=== PATIENT | male | born 1980 | race Caucasian/White ===

== ENCOUNTER 2025-04-02 14:02 | Emergency (ER) | payer OTHER ==
[2025-04-02 14:59] LABS: BASOPHILS ABSOLUTE AUTO 0.1 K/mm3 (0.0-0.2); BASOPHILS PERCENT AUTO 0.8 % (0.0-1.0); EOSINOPHILS ABSOLUTE AUTO 0.5 K/mm3 (0.0-0.4); EOSINOPHILS PERCENT AUTO 6.3 % (0.0-6.0); IMMATURE GRAN ABSOLUTE AUTO 0.01 K/mm3 (0.00-0.05); IMMATURE GRAN PERCENT AUTO 0.1 % (0.0-0.4); LYMPHOCYTES ABSOLUTE AUTO 2.4 K/mm3 (1.0-4.8); LYMPHOCYTES PERCENT AUTO 33.9 % (24.0-44.0); MEAN PLATELET VOLUME 8.8 fl (9.4-12.4); MONOCYTES ABSOLUTE AUTO 0.7 K/mm3 (0.0-0.8); MONOCYTES PERCENT AUTO 9.8 % (0.0-8.0); NEUTROPHILS ABSOLUTE AUTO 3.5 K/mm3 (1.8-7.7); NEUTROPHILS PERCENT AUTO 49.1 % (41.0-71.0); NRBC ABSOLUTE 0.00 (0.00-0.02); NRBC PERCENT 0.0 % (0.0-0.2); PLATELET COUNT,PLT 325 K/mm3 (150-400); RED BLOOD CELL COUNT 4.93 M/mm3 (4.52-5.90); WHITE BLOOD CELL COUNT,WBC 7.13 K/mm3 (3.9-11.3)
[2025-04-02 15:21] LABS: A/G RATIO 1.1 (1-2); ALANINE AMINOTRANSFERASE,ALT 31 U/L (16-63); ASPARTATE AMNIOTRANSFERASE,AST 15 U/L (15-37); BILIRUBIN TOTAL 0.7 mg/dL (0.2-1.0); BLOOD UREA NITROGEN,BUN 17 mg/dL (7-18); CARBON DIOXIDE,CO2 28 mEq/L (21-32); CHLORIDE,CL 107 mEq/L (98-107); CREATININE 0.9 mg/dL (0.7-1.3); ESTIMATED GFR 109 mL/min (>60); GLUCOSE RANDOM 118 mg/dL (70-99); POTASSIUM,K 3.8 mEq/L (3.5-5.1); PROTEIN TOTAL,TP 7.0 g/dl (6.4-8.2); SODIUM,NA 143 mEq/L (136-145)
== END 2025-04-02 15:34 | disposition home or self-care (01) ==
LOC: JD.ED 14:02
DX: G89.18 Other acute postprocedural pain (principal); M25.562 Pain in left knee
CPT/HCPCS: 36415; 80053; 83735; 85025; 93971-26-LT; 93971-LT; 99284